=== PATIENT | male | born 1960 | race Two or more races ===

== ENCOUNTER 2020-08-27 13:34 | Emergency (ER) | payer OTHER ==
[2020-08-27 16:32] LABS: BASOPHIL 0.5 % (0-2); EOSINOPHIL 3.3 % (0-5); HCT 47.6 % (42.0-52.0); HGB 16.3 g/dl (13.2-18.0); LYMPHOCYTE 19.9 % (15-48); MCH 29.7 pg (25.0-31.0); MCHC 34.2 g/dL (32.0-36.0); MCV 86.9 fL (78.0-100.0); MONOCYTE 8.8 % (0-12); NEUTROPHIL 66.8 % (41-80); NRBC 0; PLT 202 K/uL (150-400); RBC 5.48 M/uL (4.70-6.00); RDW 12.9 % (11.5-14.0); WBC 7.3 K/uL (4.0-10.5)
[2020-08-27 16:51] LABS: BILIRUBIN - TOTAL 0.6 mg/dL (0.2-1.0); BUN/CREAT RATIO (CALC) 21.8 RATIO; CREATININE 0.78 mg/dL (0.67-1.17); GLOBULIN (CALCULATION) 3.1 g/dL; POTASSIUM 3.9 mmol/L (3.5-5.1); TOTAL PROTEIN 7.1 g/dL (6.4-8.2)
[2020-08-27] MEDS ORDERED: NAPROXEN500 MG PO (17:09)
== END 2020-08-27 17:20 | disposition home or self-care (01) ==
LOC: FER 13:34
PROVIDERS: Nurse Practitioner Family
DX: M25.512 Pain in left shoulder (principal)
CPT/HCPCS: 36415; 73030; 80053; 84484; 85025; 93005; J1100; J1885